=== PATIENT | female | born 1960 | race Caucasian/White ===

== ENCOUNTER 2021-11-12 09:30 | Outpatient (RCR) | payer MEDICARE, OTHER, SELFPAY ==
[2021-07-16 11:55] VITALS: PULSE 62
== END 2021-11-12 23:59 | disposition home or self-care (01) ==
LOC: ANHCPREHAB 09:30
PROVIDERS: Visit Provider Student in an Organized Health Care Education/Training Program
DX: J43.9 Emphysema, unspecified (principal)
CPT/HCPCS: 94625; 97150; G0424

== ENCOUNTER 2021-11-28 07:49 | Outpatient (CLI) | payer MEDICARE, OTHER, SELFPAY ==
--- NOTE | 2021-11-28 12:05 | WPDSIXMINUTE ---
Six Minute Walk Procedure Procedure Performed Pulmonary Stress Test (6 min walk) Six Minute Walk This is a 6 minute walk test. The test was performed and interpreted in accordance with the 2014 ERS/ATS task force guidelines. of note the test was completed with the patient using a wheeled walker with his personal portable O2 set at 3 liters/minute. Findings: The patient's resting 3 L oxygen saturation measured by pulse oximetry was 96% and heart rate was 78 bpm. Patient ambulated for 274 meters and oxygen saturation remained 91 to 96%. Heart rate at the end of the study was 108 bpm. The patient had adequate saturations on 3 L nasal cannula with ambulation. There are no prior studies for comparison.
== END 2021-11-28 07:50 | disposition home or self-care (01) ==
LOC: ANHPFT 07:51
PROVIDERS: Visit Provider Student in an Organized Health Care Education/Training Program
DX: I25.10 Atherosclerotic heart disease of native coronary artery without angina pectoris (principal)
CPT/HCPCS: 94618

== ENCOUNTER 2023-03-12 09:48 | Outpatient (CLI) | payer MEDICARE, OTHER, SELFPAY ==
--- NOTE | ~2023-03-12 | MR_ITS ---
MRI of the brain Clinical History: Benign neoplasm meninges, 3 month follow-up Technique: Axial and sagittal T1-weighted images were acquired. These were followed by axial T2-weigh lidya, diffusion weighted, gradient, and FLAIR images. Following intravenous administration of 20 cc Mu ltiHance gadolinium, T1-weighted fat-sat imaging was performed in the axial and coronal planes. Findings: There is no acute infarct or intracranial hemorrhage. There are minimal chronic white matte r changes in the periventricular white matter bilaterally. There is a 1.1 cm round, solid enhancing mass in the choroid plexus in the atrium of the right latera l ventricle. No other intracranial mass identified. Ventricles and subarachnoid spaces are otherwise unremarkable. Orbits are unremarkable. Paranasal sin uses and mastoid air cells are clear. Major intracranial flow voids are intact. Sagittal midline structures are intact. IMPRESSION: 1.1 cm solid enhancing mass in the choroid plexus in the atria right lateral ventricle. This is indet erminate, but could reflect intraventricular meningioma. Comparison with any prior exams to assess fo r stability is advised. Reviewed, dictated and finalized at location M. IMPRESSION: 1.1 cm solid enhancing mass in the choroid plexus in the atria right lateral ve ntricle. This is indeterminate, but could reflect intraventricular meningioma. Comparison with any prior exams to assess for stability is advised.
== END 2023-03-12 09:49 | disposition home or self-care (01) ==
LOC: CHSIMG 09:52
DX: D32.9 Benign neoplasm of meninges, unspecified (principal)
CPT/HCPCS: 70553; A9577